=== PATIENT | female | born 1985 | race African-American/Black ===

== ENCOUNTER 2023-12-17 08:14 | Emergency (ER) | payer BC ==
[~2023-12-17] VITALS: Ht 172.7 cm; Wt 57.7 kg
[2023-12-17 08:26] VITALS: BP 103/76; PULSE 79; RESP 20; TEMP 98.4; O2SAT 100
[2023-12-17] MEDS ORDERED: KETOROLAC 30 MG/ML VIAL IM ONE (09:05)
[2023-12-17 09:15] LABS: APPEARANCE,URINE CLEAR (CLEAR); BILIRUBIN,URINE NEGATIVE (NEGATIVE); BLOOD, URINE TRACE-I (NEGATIVE); COLOR,URINE YELLOW (YELLOW); LEUKOCYTE ESTERASE ,URINE NEGATIVE (NEGATIVE); NITRITE, URINE NEGATIVE (NEGATIVE); PROTEIN,URINE NEGATIVE (NEGATIVE); UGLUCOSE NEGATIVE (NEGATIVE); UROBILINOGEN,URINE 0.2 EU/dL (0.2 - 1)
[2023-12-17] MEDS: KETOROLAC 30 MG/ML VIAL IVP ONE (10:44)
[2023-12-17 11:03] LABS: ALBUMIN 4.6 g/dL (3.4-5.0); ANION GAP 15.4 (8-16); CALCIUM 9.3 mg/dL (8.5-10.1); CARBON DIOXIDE 27.3 mmol/L (21-32); CREATININE 0.8 mg/dL (0.6-1.3); POTASSIUM 3.7 mmol/L (3.5-5.1); TOTAL BILIRUBIN 1.2 mg/dL (0.0-1.0); TOTAL PROTEIN, SERUM 8.1 g/dL (6.4-8.2)
[2023-12-17 11:14] LABS: HEMATOCRIT 34.5 % (36-48); HEMOGLOBIN 12.3 g/dL (12.0-16.0); MEAN CORPUSCULAR HEMOGLOBIN 28 pg (27-31); MEAN CORPUSCULAR HGB CONC 36 g/dL (33-37); MEAN CORPUSCULAR VOLUME 79.6 fL (80-94); PLATELET COUNT (AUTO) 352 K/uL (140-450); RED BLOOD CELL COUNT(AUTO) 4.34 MIL/uL (4.20-5.40); RED CELL DISTRIBUTION WIDTH 15.2 % (11.6-13.7); WHITE BLOOD COUNT (AUTO) 9.1 K/uL (4.8-10.8)
[2023-12-17] MEDS: MORPHINE SULFATE 4 MG/ML SYR IM ONE (11:46)
[2023-12-17 11:55] LABS: LYMPHOCYTES % (MANUAL) 25 % (20-46); MONOCYTES % (MANUAL) 6 % (5-12)
[2023-12-17] MEDS ORDERED: IBUP-2213 PO (12:02)
[2023-12-17 12:30] VITALS: BP 104/62; PULSE 72; RESP 18; O2SAT 100
== END 2023-12-17 12:30 | disposition home or self-care (01) ==
LOC: MED 08:14
DX: D25.9 Leiomyoma of uterus, unspecified (principal); N83.202 Unspecified ovarian cyst, left side; N83.201 Unspecified ovarian cyst, right side; Z79.899 Other long term (current) drug therapy
CPT/HCPCS: 36415; 76705; 76856; 80053; 81003; 81025; 83690; 85025; 93976; 96374; 96375; 99285; J1885; J2270; Q0092

== ENCOUNTER 2023-12-22 11:16 | Emergency (ER) | payer BC ==
[~2023-12-22] VITALS: Ht 172.7 cm; Wt 57.2 kg
[~2023-12-22 11:16] MED LIST: IBUP-2213 PO
[2023-12-22 11:31] VITALS: BP 117/72; PULSE 89; RESP 20; TEMP 98.3; O2SAT 100
[2023-12-22] MEDS ORDERED: KETOROLAC 30 MG/ML VIAL ONE (12:42)
[2023-12-22] MEDS: KETOROLAC 30 MG/ML VIAL IM ONE (12:57)
[2023-12-22 12:59] LABS: BASOPHILS # (AUTO) 0.1 K/uL (0.00-0.22); BASOPHILS % (AUTO) 0.8 % (0.0-2.0); EOSINOPHILS # (AUTO) 0.3 K/uL (0-0.4); EOSINOPHILS % (AUTO) 2.8 % (0.0-4.0); HEMATOCRIT 30.8 % (36-48); HEMOGLOBIN 10.7 g/dL (12.0-16.0); LYMPHOCYTES # (AUTO) 1.8 K/uL (2.5-16.5); LYMPHOCYTES % (AUTO) 19.7 % (20.5-51.1); MEAN CORPUSCULAR HEMOGLOBIN 28 pg (27-31); MEAN CORPUSCULAR HGB CONC 35 g/dL (33-37); MEAN CORPUSCULAR VOLUME 80.7 fL (80-94); MONOCYTES # (AUTO) 0.6 K/uL (0.8-1.0); MONOCYTES % (AUTO) 6.7 % (1.7-9.3); NEUTROPHILS # (AUTO) 6.4 K/uL (1.8-7.7); PLATELET COUNT (AUTO) 296 K/uL (140-450); RED BLOOD CELL COUNT(AUTO) 3.81 MIL/uL (4.20-5.40); RED CELL DISTRIBUTION WIDTH 15.8 % (11.6-13.7); WHITE BLOOD COUNT (AUTO) 9.2 K/uL (4.8-10.8)
[2023-12-22 13:01] LABS: APPEARANCE,URINE CLEAR (CLEAR); BILIRUBIN,URINE NEGATIVE (NEGATIVE); BLOOD, URINE 2+ (NEGATIVE); COLOR,URINE YELLOW (YELLOW); LEUKOCYTE ESTERASE ,URINE NEGATIVE (NEGATIVE); NITRITE, URINE NEGATIVE (NEGATIVE); PROTEIN,URINE NEGATIVE (NEGATIVE); UGLUCOSE NEGATIVE (NEGATIVE); UROBILINOGEN,URINE 0.2 EU/dL (0.2 - 1)
[2023-12-22 13:09] LABS: ANION GAP 10.9 (8-16); CALCIUM 9.1 mg/dL (8.5-10.1); CARBON DIOXIDE 28.4 mmol/L (21-32); CREATININE 0.9 mg/dL (0.6-1.3); POTASSIUM 4.3 mmol/L (3.5-5.1)
[2023-12-22 13:14] LABS: ALBUMIN 3.8 g/dL (3.4-5.0); BILIRUBIN,DIRECT 0.2 mg/dL (0.0-0.3); TOTAL BILIRUBIN 0.9 mg/dL (0.0-1.0); TOTAL PROTEIN, SERUM 6.9 g/dL (6.4-8.2)
[2023-12-22 13:18] LABS: BACTERIA,URINE FEW /HPF (None Seen); RBC,URINE 0-5 /HPF (0-5); SQUAMOUS EPITHELIAL CELL,UR 0-3 (FEW) /LPF (0-3 (FEW)); WBC,URINE 0-5 /HPF (0-5)
[2023-12-22 13:25] LABS: FLU A ANTIGEN negative (NEGATIVE); FLU B ANTIGEN negative (NEGATIVE)
[2023-12-22] MEDS ORDERED: IBUP-2213 PO (13:54)
[2023-12-22] MEDS: MORPHINE SULFATE 4 MG/ML SYR IM ONE ×2 (13:56→15:19)
[2023-12-22 15:30] VITALS: BP 104/62; PULSE 74; RESP 15; TEMP 98.3; O2SAT 100
== END 2023-12-22 15:30 | disposition home or self-care (01) ==
LOC: MED 11:16
DX: K11.20 Sialoadenitis, unspecified (principal); K11.5 Sialolithiasis; J06.9 Acute upper respiratory infection, unspecified; D25.9 Leiomyoma of uterus, unspecified; N83.202 Unspecified ovarian cyst, left side; Z20.822 Contact with and (suspected) exposure to COVID-19; Z79.899 Other long term (current) drug therapy
CPT/HCPCS: 36415; 76830; 80048; 80076; 81001; 81025; 83690; 85025; 87426; 87804; 93976; 96372; 99285; J1885; J2270; Q0092